=== PATIENT | female | born 1950 | race Caucasian/White ===

== ENCOUNTER → 2017-06-28 | Outpatient (CLI) | payer MEDICARE ==
[~2017-06-28] VITALS: Ht 160 cm; Wt 62.5 kg
[~2017-06-28] MED LIST: ALBU.5I NEB; AMLO2.5T PO; BENZOCAINE 20% ORAL SPR 60 ML CAN OROPHARYNG ONE; CALCTAB33 PO; CLON1 PO; CLON1TAB PO; ESTR1TAB PO; FISHCAP4 PO; FLUT1SPR5 EACH NARE; HYDR25TA5 PO; LACTCAP8 PO; LEVO75TA42 PO; LIDO1SOL8 SWISH-SWAL; LIDOCAINE HCL 2% JELLY 5 ML SYRINGE TOPICAL ONE; METO25TA6 PO; MILKSUS PO; MULT1TAB46; OILCAP; SACC1CAP3 PO; VENTAER INH; VITA500S3 SL; WELL150T PO; ZANT150T2 PO
[2017-06-28 07:35] VITALS: BP 115/54; PULSE 60; RESP 20; TEMP 98; O2SAT 100
== END ==
LOC: HEND 06:54
PROVIDERS: ATTEND Internal Medicine Gastroenterology
DX: K22.4 Dyskinesia of esophagus (principal); R13.10 Dysphagia, unspecified; K21.9 Gastro-esophageal reflux disease without esophagitis
CPT/HCPCS: 91010

== ENCOUNTER → 2017-12-20 | Outpatient (CLI) | payer MEDICARE ==
[~2017-12-20] VITALS: Ht 160 cm; Wt 66.3 kg
[~2017-12-20] MED LIST changes: -AMLO2.5T PO; +ASPI81TA23 PO; -BENZOCAINE 20% ORAL SPR 60 ML CAN OROPHARYNG ONE; +BUPR150XL PO; +CALCCHW25 CHEW; -CALCTAB33 PO; +CHLORHEXIDINE GLUCONATE 2 % 1 PACK (2 CLOTHS) TOPICAL PRN; -CLON1 PO; +CYAN1TAB24 PO; +DEXTROSE 5%-LACTATED RING INJ 1,000 ML IV SCH; +ESTR0.5T PO; -ESTR1TAB PO; +LACTATED RINGER'S 1000 ML IV PRN; +LEVO75TA3 PO; -LEVO75TA42 PO; +LIDOCAINE HCL 1% PF 5 ML SYRINGE OTHER ONE; -LIDOCAINE HCL 2% JELLY 5 ML SYRINGE TOPICAL ONE; -METO25TA6 PO; +METOPROLOL TARTRATE 25 MG TAB PO PRN; +OLIV250C PO; +ONABOTULINUMTOXINA INJ 100 UNITS/VIAL ONE; +PANT40TA3 PO; +POVIDONE IODINE 5% (ANTISEPSIS KIT) 4 APPLICATIONS EACH NARE PRN; +PROPOFOL 200 MG/20 ML AMP IV ONE; -SACC1CAP3 PO; +SODIUM CHLORID 0.9% 500 ML IV PRN; -VITA500S3 SL; +VITA500T83 PO; -WELL150T PO; -ZANT150T2 PO
--- NOTE | 2017-12-20 09:24 | EKG ---
Date Performed: 12/20/2017 Time Performed: 08:57:42 PTAGE: 67 years EKG: SINUS BRADYCARDIA WITH SINUS ARRHYTHMIA WITH FIRST DEGREE AV BLOCK BORDERLINE LEFT AXIS DEV IATION MINIMAL ST DEPRESSION ABNORMAL ECG PREVIOUS TRACING : 08/10/2016 15.13 Compared to previous tracing, no PVCs present DOCTOR: Michelle Bueno Interpretating Date/Time 12/20/2017 09:23:03
[2017-12-20 11:14] VITALS: BP 96/55
[2017-12-20 11:55] VITALS: PULSE 58; RESP 18; TEMP 97.4; O2SAT 98
--- NOTE | 2017-12-20 12:05 | GIPROC ---
[facility] [address] [facility]. [facility], [id number] EGD WITH DILATION PROCEDURE REPORT EXAM DATE: 12/20/2017 PATIENT NAME: Megan Mistry MR#: [id number] BIRTHDATE: 1950 ATTENDING: Leesa Rodney MD ORDER #: [id number] [employer]ER: Camron Tsai and Deysi Franklin STATUS: outpatient INDICATIONS: The patient is a 67 yr old female here for an EGD with dilation due to esophageal spasm PROCEDURE PERFORMED: EGD w/ biopsy EGD w/ dilation of esophagus via guidewire EGD w/ directed submucosal injection(s), any substance MEDICATIONS: None and Per Anesthesia. TOPICAL ANESTHETIC: none CONSENT: The patient understands the risks and benefits of the procedure and understands that these risks include, but are not limited to: sedation, allergic reaction, infection, perforation and/or bleeding. Alternative means of evaluation and treatment include, among others: physical exam, x-rays, and/or surgical intervention. The patient elects to proceed with this endoscopic procedure. medical equipment was checked for proper function. Hand hygiene and appropriate measures for infection prevention was taken. After the risks, benefits and alternatives of the procedure were thoroughly explained, Informed consent was verified, confirmed and timeout was successfully executed by the treatment team. The patient was anesthetized with topical anesthesia and the Pentax EG-[id number] endoscope was introduced through the mouth and advanced to the proximal jejunum. The instrument was slowly withdrawn as the mucosa was fully examined. S/p gastric bypass- gastritis body -biopsy spasm distal esophagus -s/p dialtation BOTOX injected-100 units at ge junction-25 units in each quadrant esophagitis distal esophagus-biopsy. Dilation was performed at gastroesophageal junction. DILATOR: SIZE(S): RESISTANCE: HEME: APPEARANCE: Dilator: Savary over guidewire Size(s): 18 COMMENT: Retroflexion was not performed ADVERSE EVENTS: There were no complications. IMPRESSIONS: 1. S/p gastric bypass- gastritis body -biopsy spasm distal esophagus -s/p dialtation BOTOX injected-100 units at ge junction-25 units in each quadrant esophagitis distal esophagus-biopsy 2. Retroflexion was not performed RECOMMENDATIONS: 1. Await biopsy results. Biopsy results will not be ready for 7-10 days. If you don't hear from us in two weeks, call our office for biopsy results. 2. Anti-reflux regimen 3. Continue PPI 4. Avoid NSAIDS REPEAT EXAM: Return 3 years EGD egd/botox/dilatation as needed if not better call Leesa Rodney MD eSigned: Leesa Rodney MD 12/20/2017 12:05 PM cc: Chris Dong M.D. PATIENT NAME: Megan Mistry MR#: [id number]
== END ==
LOC: HSDC 08:14
PROVIDERS: ATTEND Internal Medicine Gastroenterology
DX: K22.2 Esophageal obstruction (principal); K22.0 Achalasia of cardia; K29.50 Unspecified chronic gastritis without bleeding; K20.9 Esophagitis, unspecified; I44.0 Atrioventricular block, first degree; Z98.84 Bariatric surgery status
CPT/HCPCS: 00731; 43236; 43248; 88305; 88312; 93005; C1769; J0585; J7120